=== PATIENT | female | born 1995 | race Two or more races ===

== ENCOUNTER 2019-06-22 17:57 | Emergency (ER) | payer MEDICAID ==
[~2019-06-22] VITALS: Ht 162.6 cm; Wt 48.5 kg
[2019-06-22 18:15] VITALS: BP 128/82
[2019-06-22] MEDS ORDERED: METHOCARBAMOL 500 MG TAB PO ONE (20:30)
[2019-06-22] MEDS ORDERED: NAPROXEN 500 MG TAB PO ONE (20:30)
== END 2019-06-22 20:54 | disposition home or self-care (01) ==
LOC: ER 17:57 → EDBD 17:57 → EDSEX 17:57 → ER 20:54
DX: S00.03XA Contusion of scalp, initial encounter (principal); S40.012A Contusion of left shoulder, initial encounter; Z88.8 Allergy status to other drugs, medicaments and biological substances; V49.49XA Driver injured in collision with other motor vehicles in traffic accident, initial encounter; Y93.89 Activity, other specified; Y99.8 Other external cause status; Y92.89 Other specified places as the place of occurrence of the external cause
CPT/HCPCS: 70450; 81025